=== PATIENT | female | born 1980 | race Caucasian/White ===

== ENCOUNTER 2023-11-17 19:08 | Emergency (ER) | payer OTHER, SELFPAY ==
[2023-11-17 19:48] VITALS: BP 166/92; PULSE 102; RESP 16; TEMP 37.2; O2SAT 100; BMI 23.7
--- NOTE | 2023-11-17 20:07 | ED_ITS ---
HPI - General Adult General Chief complaint: Fever Stated complaint: chills,weak Time Seen by Provider: 11/17/23 19:20 Source: patient Mode of arrival: ambulatory Limitations: no limitations History of Present Illness HPI narrative: 43-year-old female coming in today complaining of not feeling well. She feels very fatigued and sweaty. She has decreased energy. She feels very achy from head to toe. She denies any fevers but does feel chilled. She did not take her temperature today. She states that she is around many people or ill with everything from COVID to the flu to mono. She denies any vomiting. No diarrhea. No urinary symptoms although patient states that she does frequently get UTIs with cold symptoms so she is concerned about the possibility of that. No abdominal or chest pain. No skin rashes. She denies any recent traveling. No changes in medications. Patient does have hypothyroidism, is on levothyroxine. States that she had her thyroid checked the last week and it was within normal limits. Related Data Home Medications Medication Instructions Recorded Confirmed levothyroxine 100 mcg tablet 100 mcg PO DAILY 11/17/23 11/17/23 (Synthroid) liothyronine 25 mcg tablet 20 mcg PO DAILY 11/17/23 11/17/23 (Cytomel) Allergies Allergy/AdvReac Type Severity Reaction Status Date / Time amoxicillin [From Augmentin] Allergy Nausea Verified 11/17/23 19:55 cephalexin [From Keflex] Allergy Rash Verified 11/17/23 19:55 clavulanic acid Allergy Nausea Verified 11/17/23 19:55 [From Augmentin] Sulfa (Sulfonamide Allergy Verified 11/17/23 19:55 Antibiotics) Review of Systems Status of ROS: Reports: 10 or more systems reviewed and unremarkable except as noted in History and below [facility] Social History Smoking Status: Never smoker How often do you have a drink containing alcohol: 2-3 times a week How often do you have six or more drinks on one occasion: Never AUDIT-C Alcohol total score: 3 Non-prescribed substance use: denies use Exam Narrative: Exam Narrative: Well-nourished well-developed patient in no acute distress. Alert and oriented. Answers questions appropriately. Mood and affect are appropriate. Thoughts are goal oriented and rational. No tangential or magical thinking noted. Patient speaks in full sentences without needing to catch her breath. His not appear ill or toxic. HEENT: Normocephalic atraumatic. Pupils are equally round reactive to light. Extraocular muscles are intact. Conjunctivae are moist without any icterus noted. Moist mucous membranes. Posterior pharynx is normal. Neck is soft without any lymphadenopathy or thyromegaly. No masses are appreciated. Cardiovascular: Heart is regular rate and rhythm S1 and S2 are present without any murmurs. Lungs: Clear to auscultation bilaterally no wheezes rhonchi or rales are appreciated. Patient takes deep breaths without any discomfort. Abdomen: Soft and nontender nondistended with normal bowel sounds. Extremities: Bilateral lower extremities are without edema. Skin: Well perfused without any obvious rashes. Const: Vital Signs, click to edit/add: Vital Signs - 24 hr 11/17/23 19:48 Temperature 98.9 F Pulse Rate [Pulse Oximeter] 102 H Respiratory Rate 16 Blood Pressure [Ri ght Upper Arm] 166/92 H Pulse Oximetry 100 Oxygen Delivery Me thod Room Air Course Course ED Course: Will check a triple swab, CBC, mono and UA. Care transferred to oncoming physician. Vital Signs Vital signs: Initial Vital Signs Temperature 98.9 F 11/17/23 19:48 Temperature Source Temporal Artery Scan 11/17/23 19:48 Pulse Rate 102 H 11/17/23 19:48 Respiratory Rate 16 11/17/23 19:48 Blood Pressure 166/92 H 11/17/23 19:48 Blood Pressure Mean 116 H 11/17/23 19:48 Blood Pressure Position Sitting 11/17/23 19:48 Pulse Oximetry 100 11/17/23 19:48 Oxygen Delivery Method Room Air 11/17/23 19:48 Vital Signs Temperature 98.9 F 11/17/23 19:48 Pulse Rate 102 H 11/17/23 19:48 Respiratory Rate 16 11/17/23 19:48 Blood Pressure 166/92 H 11/17/23 19:48 Pulse Oximetry 100 11/17/23 19:48 Oxygen Delivery Method Room Air 11/17/23 19:48 Temperature 98.9 F 11/17/23 19:48 Pulse Rate 102 H 11/17/23 19:48 Respiratory Rate 16 11/17/23 19:48 Blood Pressure 166/92 H 11/17/23 19:48 Pulse Oximetry 100 11/17/23 19:48 Oxygen Delivery Method Room Air 11/17/23 19:48 Medical Decision Making Lab Data Labs: Lab Results 11/17/23 11/17/23 11/17/23 Range/Units 19:59 20:38 21:00 WBC 8.03 (4.50-11.00) K/uL RBC 4.44 (4.00-5.20) m/uL Hgb 12.8 (12.0-16.0) gm/dL Hct 38.8 (33.0-51.0) % MCV 87 (80-100) fL MCH 29 (26-34) pg MCHC 33 (32-36) gm/dL RDW Coeff of Brian 12.8 (11.5-15.5) % Plt Count 267 (140-440) K/uL Neut % (Auto) 59.6 (42.0-72.0) % Lymph % (Auto) 28.4 (20-44) % [place] % (Auto) 7.1 (0.0-11.0) % Eos % (Auto) 4.4 (0.0-7.0) % Baso % (Auto) 0.4 (0.0-3.0) % Neut # (Auto) 4.79 (1.7-7.0) K/uL Lymph # (Auto) 2.28 (0.90-2.90) K/uL [place] # (Auto) 0.60 (0.00-0.90) K/UL Eos # (Auto) 0.35 (0.00-0.50) K/uL Baso # (Auto) 0.03 (0.00-0.30) K/uL Abs Immat Gran (auto) 0.01 (0.00-0.30) K/uL Imm/Tot Granulo (auto) 0.1 % Urine Color Yellow (Yellow) Urine Appearance Clear (Clear) Urine pH 7.0 (5.0-8.5) Ur Specific Bruce 1.015 (1.000-1.030) Urine Protein Negative (Negative) Urine Glucose (UA) Negative (Negative) Urine Ketones Negative (Negative) Urine Blood Negative (Negative) Urine Nitrite Negative (Negative) Urine Bilirubin Negative (Negative) Urine Urobilinogen 0.2 (0.2-1.0) Ur Leukocyte Esterase 1+ A (Negative) Urine RBC 0-2 (0-2) Urine WBC 5-10 A (0-5) Ur Squamous Epith Cells Few (None-Few) Urine Bacteria None (None) SARS-CoV-2 (PCR) Negative SARS-CoV-2 (Negative) Monoscreen Negative (Negative) Influenza Type A (PCR) Negative PCR FLU A (Negative) Influenza Type B (PCR) Negative PCR FLU B (Negative) RSV (PCR) Negative PCR RSV (Negative) Discharge Plan Discharge Clinical Impression: UTI (urinary tract infection) Patient Disposition: Home, Self-Care Condition: Stable Instructions: Urinary Tract Infection in Women (ED) Additional Instructions: REST FLUIDS TYLENOL MOTRIN AMOXICILLIN DIRECTED Activity Level: No Restrictions Discharge Diet: Regular Prescriptions: No Action levothyroxine [Synthroid] 100 mcg tablet 100 mcg PO DAILY liothyronine [Cytomel] 25 mcg tablet 20 mcg PO DAILY Follow Up/Referrals: Provider,Not a Local [Primary Care Provider] - Stand Alone Forms: MyHealth Info Instructions
[2023-11-17 20:44] LABS: Basophils Absolute Auto 0.03 K/uL (0.00-0.30); Basophils Percent Auto 0.4 % (0.0-3.0); Eosinophils Absolute Auto 0.35 K/uL (0.00-0.50); Eosinophils Percent Auto 4.4 % (0.0-7.0); Hematocrit 38.8 % (33.0-51.0); Hemoglobin* 12.8 gm/dL (12.0-16.0); Immature Granulocytes Abs Auto 0.01 K/uL (0.00-0.30); Immature Granulocytes Pct Auto 0.1 %; Lymphocytes Absolute Auto 2.28 K/uL (0.90-2.90); Lymphocytes Percent Auto 28.4 % (20-44); Mean Corpuscular HGB Conc 33 gm/dL (32-36); Mean Corpuscular Hemoglobin 29 pg (26-34); Mean Corpuscular Volume 87 fL (80-100); Monocytes Percent Auto 7.1 % (0.0-11.0); Neutrophils Absolute Auto 4.79 K/uL (1.7-7.0); Neutrophils Percent Auto 59.6 % (42.0-72.0); Platelet Count* 267 K/uL (140-440); RDW Coefficient of Variation % 12.8 % (11.5-15.5); Red Blood Count 4.44 m/uL (4.00-5.20); White Blood Count* 8.03 K/uL (4.50-11.00)
[2023-11-17 20:46] LABS: PCR FLU A Negative PCR FLU A (Negative); PCR FLU B Negative PCR FLU B (Negative); PCR RSV Negative PCR RSV (Negative)
[2023-11-17 20:46] LABS: Slide Review Reflex No
[2023-11-17 20:56] LABS: Mono Screen* Negative (Negative)
[2023-11-17 21:07] LABS: SARS PCR* Negative SARS-CoV-2 (Negative)
[2023-11-17 21:08] LABS: Appearance Urine Clear (Clear); Bilirubin Urine Negative (Negative); Blood Urine Negative (Negative); Color Urine Yellow (Yellow); Glucose Urine Negative (Negative); Ketones Urine Negative (Negative); Leukocyte Esterase Urine 1+ (Negative); Nitrite Urine Negative (Negative); Protein Urine Negative (Negative); Specific Gravity Urine 1.015 (1.000-1.030); Urobilinogen Urine 0.2 (0.2-1.0)
[2023-11-17 21:35] LABS: RBC Urine 0-2 (0-2); Squamous Epithelial Cell Urine Few (None-Few)
== END 2023-11-17 21:36 | disposition home or self-care (01) ==
PROVIDERS: Emergency Provider Family Medicine
DX: N39.0 Urinary tract infection, site not specified (principal)
CPT/HCPCS: 36415; 81001; 85025; 86308; 87086; 87631; 99283; 99284